=== PATIENT | female | born 1925 ===

== ENCOUNTER 2017-03-08 16:23 | Inpatient (IN) | payer MEDICARE, OTHER ==
[2017-03-08] MEDS ORDERED: Sodium Chloride 0.9% 1,000 ML IV ONE (17:26)
[2017-03-08 17:47] LABS: BASO % 0.4 % (0.0-2.0); EOS # 0.1 K/uL (0.0-0.7); EOS % 1.3 % (0.0-4.0); HEMATOCRIT 23.3 % (34.0-47.0); LYMPH # 1.1 K/uL (1.0-4.3); LYMPH % 21.6 % (20.0-40.0); MEAN CELL VOLUME 89.3 fL (81.0-99.0); MEAN CORPUSCULAR HEMOGLOBIN 29.9 pg (27.0-31.0); MEAN CORPUSCULAR HGB CONC 33.5 g/dL (33.0-37.0); MEAN PLATELET VOLUME 6.9 fL (7.2-11.7); MONO # 0.5 K/uL (0.0-0.8); MONO % 9.7 % (0.0-10.0); NRBC % 0.1 % (0.0-2.0); RED CELL DISTRIBUTION WIDTH 14.5 % (11.5-14.5); WHITE BLOOD COUNT 4.9 K/uL (4.8-10.8)
[2017-03-08 18:14] LABS: CHLORIDE 93 mmol/L (98-107); POTASSIUM 3.9 mmol/L (3.6-5.2); SODIUM 129 mmol/L (132-148)
[2017-03-08 18:16] LABS: GFR AFRICAN-AMERICAN > 60
[2017-03-08 18:17] LABS: ALB/GLOB RATIO 1.3 (1.0-2.1); ALKALINE PHOSPHATASE 74 U/L (38-126); ALT/SGPT 31 U/L (9-52); AST/SGOT 30 U/L (14-36); BILIRUBIN,TOTAL 0.4 mg/dL (0.2-1.3); BLOOD UREA NITROGEN 12 mg/dL (7-17); CARBON DIOXIDE 26 mmol/L (22-30); GLUCOSE,RANDOM 101 mg/dL (65-105); TOTAL PROTEIN 6.9 g/dL (6.3-8.3)
[2017-03-08 18:18] LABS: CALCIUM 8.9 mg/dl (8.6-10.4)
[2017-03-08 18:26] LABS: URINE BILIRUBIN NEGATIVE (NEGATIVE); URINE BLOOD NEGATIVE (NEGATIVE); URINE COLOR Straw (YELLOW); URINE GLUCOSE (UA) NORMAL (Normal); URINE KETONE NEGATIVE (NEGATIVE); URINE LEUKOCYTE ESTERASE NEG Leu/uL (Negative); URINE PROTEIN NEGATIVE (NEGATIVE); URINE UROBILINOGEN NORMAL mg/dL (0.2-1.0); WBC URINE 2 /hpf (0-5)
--- NOTE | 2017-03-08 18:26 | C.PDOC ---
History Of Present Illness 89 y/o female presents to the ED for evaluation. Per caregivers, they discovered patient took 3 days worth of blood pressure pills and plavix 4 days ago. Pt's blood pressure noted to be low, they consulted her doctor at the time , patient without complaints. Blood pressure returned to normal. Yesterday patient felt weak with "black" stool; saw physician with labs done showing hemoglobin 7.5. Denies vomiting, hematemesis, hematochezia, SOB or any other complaints. Time Seen by Provider: 03/08/17 16:42 Chief Complaint (Nursing): Abnormal Labs History Per: Patient History/Exam Limitations: no limitations Onset/Duration Of Symptoms: Hrs Current Symptoms Are (Timing): Still Present Severity: Mild Reports Recently: Treated By A Physician Recent travel outside of the [place]: No Past Medical History Reviewed: Historical Data, Nursing Documentation, Vital Signs Vital Signs: Last Vital Signs Temp 97.3 F L 03/10/17 11:14 Pulse 73 03/10/17 11:14 Resp 20 03/10/17 11:14 BP 154/92 H 03/10/17 11:14 Pulse Ox 95 03/10/17 11:14 - Medical History PMH: Alzheimer's Disease, HTN, Seizures Family History: States: Unknown Family Hx - Social History Hx Alcohol Use: No Hx Substance Use: No Review Of Systems Except As Marked, All Systems Reviewed And Found Negative. Constitutional: Positive for: Weakness. Negative for: Fever Respiratory: Negative for: Shortness of Breath Gastrointestinal: Positive for: Melena. Negative for: Vomiting, Hematochezia, Hematemesis Physical Exam - Physical Exam Appears: Non-toxic, No Acute Distress Skin: Warm, Dry Head: Atraumatic, Normacephalic Chest: Symmetrical Cardiovascular: Rhythm Regular, No Murmur Respiratory: Normal Breath Sounds, No Rales, No Rhonchi, No Wheezing Gastrointestinal/Abdominal: Normal Exam, Soft, No Tenderness Rectal: Normal Exam, Other (brownish stool) Extremity: Normal ROM Neurological/Psych: Oriented x3, Normal Speech, Normal Cognition ED Course And Treatment - Laboratory Results Result Diagrams: 03/10/17 08:44 03/10/17 08:44 ECG: Interpreted By Me, Viewed By Me ECG Rhythm: Sinus Rhythm Rate From EC (BPM) O2 Sat by Pulse Oximetry: 97 (room air) Pulse Ox Interpretation: Normal Progress Note: Plan: Transfusion, EKG, labs, CXR, IV fluids, UA, stool occult Medical Decision Making Medical Decision Making: Pt remained stable in the ED Results discussed with caregiver Hgb 7.9 no active bleeding but quiac (+) stoool Plan admit transfuse w/o Discussed with dr Lyon agrees with plan Disposition - Disposition Disposition: HOSPITALIZED Disposition Time: 18:00 Condition: FAIR - Clinical Impression Clinical Impression: Anemia, H/O peptic ulcer, Guaiac positive stools - Scribe Statement The provider has reviewed the documentation as recorded by the Jarod Winn Provider Attestation: All medical record entries made by the Jarod were at my direction and personally dictated by me. I have reviewed the chart and agree that the record accurately reflects my personal performance of the history, physical exam, medical decision making, and the department course for this patient. I have also personally directed, reviewed, and agree with the discharge instructions and disposition.
--- NOTE | 2017-03-08 19:28 | CP.PCM.HP ---
History of Present Illness - History of Present Illness History of Present Illness: Please note history from daughter at bedside as patient has Alzheimer's dementia and is AO x 2 CC: she fainted on Tuesday HPI: 89 yo female PMHx HTN, PUD, Alzheimer's dementia, seizure hx? presents after she was sent in by Dr. Card PMAshley for low Hgb count. As per daughter, on Tuesday the patient mistakenly ingested her blood pressure medications and Plavix meant for 3 days. After she ingested the BP meds she had an episode of "fainting" where she had an episode of brief LOC with some urinary incontinence. Patient did not have any biting of the tongue, eyes rolled back, shaking and she did not hit her head. She woke up and was feeling better and walking around like normal as per daughter. Her BP when she woke up from her episode was 100/50mmHg and a later BP was 117/65mmHg. On Tuesday, patient and daughter noticed some dark tarry stool and some bright red blood streaks in the toilet bowl after a BM. Patient saw Dr. Card in the office on Tuesday and was instructed to no longer take any plavix and was started on Nitrofurantoin 100mg po bid for a possible UTI. Patient had her blood drawn in the office and results this AM showed a Hgb of 7.4 which is why patient was instructed to go to the ER. Denies fever, chills, diaphoresis, weakness, headache, dizziness, lightheadedness, change in vision and change in hearing, sore throat, dysphagia , chest pain, palpitations, SOB, cough, abdominal pain, nausea, vomiting, hematemesis, diarrhea, constipation, dysuria, urinary frequency, leg pain/ swelling, back pain, bruising, bleeding, rash, travel, recent sickness, sick contacts, change in weight, change in appetite. Patient admits to melanotic stool and hematochezia. As per son at bedside, patient had a colonoscopy 20 years ago which was unremarkable and an EGD 18 years ago which was unremarkable. PMHx: HTN, PUD, Alzheimer's dementia, seizure hx? [every few years patient has an episode- last year she was seen at [facility] and work up was negative] PSHx: cataracts ALL: NKDA Medications: Irbesartan/HCTZ 300/12.5mg daily, Plavix 75mg daily, Nitrofurantoin 100mg po bid, Omeprazol 20mg po daily Social Hx: quit smoking tobacco 30 years ago and used to smoke 2-3 cigaretes a day since she was a teenager; denies EtOH and drug use; lives with family and used to work as a teacher. Patient usually ambuates without a walker/cane. Family Hx: father had some cardiac issues PMD: Kyaw ROS: Denies fever, chills, diaphoresis, weakness, headache, dizziness, lightheadedness, change in vision and change in hearing, sore throat, dysphagia , chest pain, palpitations, SOB, cough, abdominal pain, nausea, vomiting, hematemesis, diarrhea, constipation, dysuria, urinary frequency, leg pain/ swelling, back pain, bruising, bleeding, rash, travel, recent sickness, sick contacts, change in weight, change in appetite. Admits to melanotic stool and hematochezia. Present on Admission - Present on Admission Any Indicators Present on Admission: No Review of Systems - Constitutional Constitutional: As Per HPI. absent: Chills, Fever - EENT Eyes: As Per HPI. absent: Change in Vision Ears: As Per HPI. absent: Tinnitus Nose/Mouth/Throat: As Per HPI. absent: Dysphagia, Sore Throat - Cardiovascular Cardiovascular: As Per HPI. absent: Chest Pain, Dyspnea, Dyspnea on Exertion, Edema, Palpitations - Respiratory Respiratory: As Per HPI. absent: Cough, Dyspnea, Dyspnea on Exertion, Chest Congestion - Gastrointestinal Gastrointestinal: As Per HPI, Hematochezia, Melena. absent: Abdominal Pain, Constipation, Diarrhea, Nausea, Vomiting - Genitourinary Genitourinary: As Per HPI. absent: Dysuria, Hematuria, Pyuria, Nocturia - Musculoskeletal Musculoskeletal: As Per HPI. absent: Numbness, Tingling - Integumentary Integumentary: As Per HPI, Rash (below b/l breasts when patient does not wear a bra) - Neurological Neurological: As Per HPI. absent: Dizziness, Headaches, Tingling, Weakness Additional comments: AO x 2 - hx of Alzheimer's - Psychiatric Psychiatric: As Per HPI. absent: Anxiety, Depression - Endocrine Endocrine: As Per HPI. absent: Polydipsia, Polyphagia, Polyuria - Hematologic/Lymphatic Hematologic: As Per HPI. absent: Easy Bleeding, Easy Bruising, Lymphadenopathy Past Patient History - Past Medical History & Family History Past Medical History?: Yes - Past Social History Smoking Status: Former Smoker Chewing Tobacco Use: No Cigar Use: No Alcohol: None Drugs: Denies Home Situation {Lives}: With Family Domestic Violence: Negative - CARDIAC Hx Hypertension: Yes - NEUROLOGICAL Hx Alzheimer's Disease: Yes Hx Seizures: Yes - PSYCHIATRIC Hx Substance Use: No - SURGICAL HISTORY Hx Dilation and Curettage: Yes Meds Allergies/Adverse Reactions: Allergies Allergy/AdvReac Type Severity Reaction Status Date / Time No Known Allergies Allergy Verified 03/08/17 16:33 Physical Exam - Constitutional Appears: Well, Non-toxic, No Acute Distress - Head Exam Head Exam: ATRAUMATIC, NORMAL INSPECTION, NORMOCEPHALIC - Eye Exam Eye Exam: EOMI, Normal appearance, PERRL. absent: Conjunctival injection, Scleral icterus Pupil Exam: NORMAL ACCOMODATION, PERRL - ENT Exam ENT Exam: Mucous Membranes Moist - Neck Exam Neck exam: Positive for: Full Rom, Normal Inspection. Negative for: Lymphadenopathy, Tenderness - Respiratory Exam Respiratory Exam: Clear to Auscultation Bilateral, NORMAL BREATHING PATTERN. absent: Accessory Muscle Use, Rales, Rhonchi, Wheezes, Respiratory Distress - Cardiovascular Exam Cardiovascular Exam: REGULAR RHYTHM, RRR, +S1, +S2 - GI/Abdominal Exam GI & Abdominal Exam: Normal Bowel Sounds, Soft. absent: Firm, Guarding, Rigid, Tenderness - Rectal Exam Rectal Exam: Deferred - Extremities Exam Extremities exam: Positive for: normal capillary refill, normal inspection, pedal pulses present. Negative for: pedal edema - Back Exam Back exam: NORMAL INSPECTION. absent: rash noted, tenderness - Neurological Exam Neurological exam: Alert, CN II-XII Intact, Reflexes Normal Additional comments: AO x [address] - Psychiatric Exam Psychiatric exam: Normal Affect, Normal Mood - Skin Skin Exam: Dry, Intact, Pallor, Pallor, Warm Results - Vital Signs Recent Vital Signs: Last Vital Signs Temp 98.3 F 03/08/17 16:27 Pulse 82 03/08/17 16:27 Resp 20 03/08/17 16:27 BP 153/72 H 03/08/17 16:27 Pulse Ox 97 03/08/17 18:29 - Labs Result Diagrams: 03/08/17 17:42 03/08/17 17:42 Assessment & Plan - Assessment and Plan (Free Text) Assessment: 89 yo female PMHx HTN, PUD, Alzheimer's dementia, seizure hx? presents after she was sent in by Dr. Kyaw HERRERA for low Hgb count Plan: Acute anemia -Hgb on admission 7.8 -Likey secondary to upper GI bleed -FOBT + -VTE ppx c/i -Home plavix on hold -Transfuse 1U PRBC - will f/u CBC -VSS -f/u AM labs -GI consult Dr. Howard Hx of HTN -Cozaar 100mg po daily -HCTZ 12.5mg po daily -f/u HgbA1c and lipid panel -Monitor Hx of PUD -Protonix 40mg po daily Hx of Alzheimer's dementia -Monitor PPX -NPO past midnight for possible GI procedure -Protonix 40mg po daily -VTE ppx c/i -NS @ 80cc/hr - will start after transfusion is completed Plan discussed with Dr. Efren Malin PGY1
[2017-03-09] MEDS: Sodium Chloride 0.9% 1,000 ML IV SCH ×2 (00:42→13:21)
--- NOTE | 2017-03-09 07:16 | CP.PCM.PN ---
<KyleJessi manriquezteresa - Last Filed: 03/09/17 17:15> Subjective - Date & Time of Evaluation Date of Evaluation: 03/09/17 Time of Evaluation: 07:10 - Subjective Subjective: PGY 1 Medicine Note- Dr. Diehl's service Pt seen and examined in no acute distress with daughter and later son present bedside. Per daughter, patient has a history of dementia and is not always alert. Today patient was awake, alert and oriented x3 with no acute complaints s /p transfusion yesterday. Per daughter and then later son, mother ingested 3 days worth of plavix and aspirin and had an episode of tarry stools prompting a doctor's visit. It was at that time that routine bloodwork was collected whereupon the hgb was noted to be decreased from baseline. At this point, patient is amble to ambulate with assistance. Patient denies fevers, chills, weakness, nausea, vomiting, diarrhea, chest pain, dyspnea or paresthesias at this time. Objective - Vital Signs/Intake and Output Vital Signs (last 24 hours): Temp Pulse Resp BP Pulse Ox 98 F 85 19 170/85 H 96 03/08/17 23:19 03/08/17 23:19 03/09/17 03:20 03/08/17 23:19 03/08/17 23:19 Intake and Output: 03/09/17 03/09/17 06:59 18:59 Intake Total 560 Balance 560 - Medications Medications: Current Medications Hydrochlorothiazide (Microzide) 12.5 mg PO DAILY [facility] Sodium Chloride (Sodium Chloride 0.9%) 1,000 mls @ 80 mls/hr IV .[id number] [facility] Last Admin: 03/09/17 00:42 Dose: 80 mls/hr Losartan Potassium (Cozaar) 100 mg PO DAILY [facility] Pantoprazole Sodium (Protonix Ec Tab) 40 mg PO DAILY [facility] - Labs Labs: PT 11.1 SECONDS (9.7-12.2) 03/08/17 17:42 INR 1.0 03/08/17 17:42 APTT 31 SECONDS (21-34) 03/08/17 17:42 - Constitutional Appears: Non-toxic, No Acute Distress - Head Exam Head Exam: ATRAUMATIC, NORMAL INSPECTION, NORMOCEPHALIC - Eye Exam Eye Exam: EOMI, Normal appearance, PERRL Additional comments: conjunctival pallor not appreciated. - ENT Exam ENT Exam: Mucous Membranes Moist - Neck Exam Neck Exam: Full ROM - Respiratory Exam Respiratory Exam: Clear to Ausculation Bilateral, NORMAL BREATHING PATTERN. absent: Wheezes - Cardiovascular Exam Cardiovascular Exam: REGULAR RHYTHM, +S1, +S2 - GI/Abdominal Exam GI & Abdominal Exam: Soft, Normal Bowel Sounds - Extremities Exam Extremities Exam: Full ROM, Normal Capillary Refill. absent: Tenderness Additional comments: LE superficial thrombophlebitis b/l nontender - Back Exam Back Exam: Full ROM - Neurological Exam Neurological Exam: Alert, Awake, CN II-XII Intact, Oriented x3 - Psychiatric Exam Psychiatric exam: Normal Affect, Normal Mood - Skin Skin Exam: Dry, Intact, Normal Color, Warm Assessment and Plan - Assessment and Plan (Free Text) Assessment: Acute anemia -Hgb on admission 7.8. Transfused 1 unit PRBC. F/U CBC: 9.2. F/U CBC 16:00 -Likely secondary to GI bleed following overdose on plavix and aspirin ( patient took 3 days worth in one day) -FOBT + -Home plavix and ASA on hold -F/U platelet mixing study and platelet function test -Platelets today 342. Cont to monitor -vital signs stable -f/u AM labs -GI consult Dr. Howard- F/U -EGD in AM. Considerations for colonoscopy pending EGD results. ( NPO past midnight) Hx of HTN -Cozaar 100mg po daily-HELD -HCTZ 12.5mg po daily-HELD -Hgb A1c- 5.7 -Lipid Panel WNL -Monitor Hypokalemia -Repleted -Cont to monitor Hx of PUD -Protonix 40mg IV Hx of Alzheimer's dementia -Cont to monitor PPX -NPO past midnight for possible GI procedure -Protonix 40mg IV daily -VTE ppx c/i -SCDs in place <Shana Diehl V - Last Filed: 03/09/17 18:47> Objective - Vital Signs/Intake and Output Vital Signs (last 24 hours): Temp Pulse Resp BP Pulse Ox 98.4 F 74 20 158/75 H 96 03/09/17 15:50 03/09/17 15:50 03/09/17 15:50 03/09/17 15:50 03/09/17 15:50 Intake and Output: 03/09/17 03/09/17 06:59 18:59 Intake Total 560 80 Balance 560 80 - Medications Medications: Current Medications Hydrochlorothiazide (Microzide) 12.5 mg PO DAILY [facility] Last Admin: 03/09/17 10:41 Dose: 12.5 mg Sodium Chloride (Sodium Chloride 0.9%) 1,000 mls @ 80 mls/hr IV .[id number] [facility] Last Admin: 03/09/17 13:21 Dose: Not Given Losartan Potassium (Cozaar) 100 mg PO DAILY [facility] Last Admin: 03/09/17 10:40 Dose: 100 mg Pantoprazole Sodium (Protonix Inj) 40 mg IVP DAILY [facility] Last Admin: 03/09/17 13:48 Dose: Not Given - Labs Labs: 03/09/17 17:52 03/09/17 07:41 PT 11.1 SECONDS (9.7-12.2) 03/08/17 17:42 INR 1.0 03/08/17 17:42 APTT 31 SECONDS (21-34) 03/08/17 17:42 Attending/Attestation - Attestation I have personally seen and examined this patient.: Yes I have fully participated in the care of the patient.: Yes I have reviewed all pertinent clinical information, including history, physical exam and plan: Yes Notes (Text): Patient seen, examined, and case discussed with day-time resident this morning. Patient transferred from general medical floor to telemetry given she is being workup for GI bleed. Discussed with GI, Dr Howard, scheduled for EGD tomorrow in AM. Will monitor H/ H to monitor anemia. Heme-onc consult given patient took excessive number of plavix and aspirin. Ordered for mixing study. Discussed with patient's son and patient at bedside, patient has history of peptic ulcer disease, [place] 1970[place], was a former smoker, does not drink coffee, and reports occasional alcohol. Patient has mild short-term memory loss but is quite communicative. Assessment/Plan 1) Acute anemia secondary to suspected GI bleed * GI (Dr Howard) on board-->help appreciated * Heme-onc (Dr. Golden Marroquin) on board-->help appreciated * Hgb on admission 7.8. s/p transfused 2 unit PRBC. Hgb: 9.2 * Transferred to telemetry for GI bleed * Occult blood positive * Ordered for platelet mixing and function test given recent plavix use * NPO * IV Protonix * Aspirin and Plavix held * EGD in the AM (03/10) 2) Hypertension * Held anti-hypertensives given patient is being monitor for GI bleed * Hydralazine 10mg IV Q6H PRN SBP>160 3) Hypokalemia * replete * monitor and replace if necessary 4) Peptic ulcer disease * Protonix 40mg IV Q 12hours * known history * patient reports refrains from smoking, coffee use, and occasional alcohol use 5) Hx of Alzheimer's dementia * mild * monitor 6) PPX * NPO past midnight for possible EGD in AM * Protonix 40mg IV Q12H for GI ppx * Contraindications to VTE secondary to GI bleed/combo of plavix and aspirin * SCDs b/l
[2017-03-09 07:57] LABS: BASO % 0.6 % (0.0-2.0); EOS # 0.1 K/uL (0.0-0.7); HEMATOCRIT 26.5 % (34.0-47.0); LYMPH # 1.1 K/uL (1.0-4.3); LYMPH % 29.8 % (20.0-40.0); MEAN CORPUSCULAR HEMOGLOBIN 30.9 pg (27.0-31.0); MEAN CORPUSCULAR HGB CONC 34.7 g/dL (33.0-37.0); MONO # 0.4 K/uL (0.0-0.8); MONO % 10.1 % (0.0-10.0); NRBC % 0.2 % (0.0-2.0); RED CELL DISTRIBUTION WIDTH 13.8 % (11.5-14.5); WHITE BLOOD COUNT 3.7 K/uL (4.8-10.8)
--- NOTE | 2017-03-09 09:21 | RAD ---
PROCEDURE: CHEST RADIOGRAPH, 1 VIEW HISTORY: GI Bleeding COMPARISON: None available. FINDINGS: LUNGS: The lungs are well inflated and clear. PLEURA: No pneumothorax or pleural fluid seen. CARDIOVASCULAR: Normal. OSSEOUS STRUCTURES: No significant abnormalities. VISUALIZED UPPER ABDOMEN: Normal. OTHER FINDINGS: None. IMPRESSION: No active pulmonary disease.
[2017-03-09 09:40] LABS: CHLORIDE 100 mmol/L (98-107)
[2017-03-09 09:41] LABS: POTASSIUM 3.5 mmol/L (3.6-5.2); SODIUM 133 mmol/L (132-148)
[2017-03-09 09:43] LABS: CHOLESTEROL 110 mg/dL (0-199); GFR AFRICAN-AMERICAN > 60
[2017-03-09 09:44] LABS: ALB/GLOB RATIO 1.2 (1.0-2.1); ALKALINE PHOSPHATASE 65 U/L (38-126); ALT/SGPT 23 U/L (9-52); AST/SGOT 23 U/L (14-36); BILIRUBIN,TOTAL 0.7 mg/dL (0.2-1.3); BLOOD UREA NITROGEN 8 mg/dL (7-17); CARBON DIOXIDE 27 mmol/L (22-30); GLUCOSE,RANDOM 84 mg/dL (65-105); PHOSPHOROUS 3.5 mg/dL (2.5-4.5); TOTAL PROTEIN 6.2 g/dL (6.3-8.3)
[2017-03-09 09:45] LABS: CALCIUM 8.7 mg/dl (8.6-10.4)
[2017-03-09] MEDS ORDERED: Pantoprazole 40 mg EC Tab PO SCH (10:00)
--- NOTE | 2017-03-09 10:39 | CP.PCM.CON ---
History of Present Illness - History of Present Illness History of Present Illness: HPI: 89 yo female PMHx HTN, PUD, Alzheimer's dementia, seizure hx? presents after she was sent in by Dr. Card PMAshley for low Hgb count. As per daughter, on Tuesday the patient mistakenly ingested her blood pressure medications and Plavix meant for 3 days. After she ingested the BP meds she had an episode of "fainting" where she had an episode of brief LOC with some urinary incontinence. Patient did not have any biting of the tongue, eyes rolled back, shaking and she did not hit her head. She woke up and was feeling better and walking around like normal as per daughter. Her BP when she woke up from her episode was 100/50mmHg and a later BP was 117/65mmHg. On Tuesday, patient and daughter noticed some dark tarry stool and some bright red blood streaks in the toilet bowl after a BM. Patient saw Dr. Card in the office on Tuesday and was instructed to no longer take any plavix and was started on Nitrofurantoin 100mg po bid for a possible UTI. Patient had her blood drawn in the office and results this AM showed a Hgb of 7.4 which is why patient was instructed to go to the ER. Denies fever, chills, diaphoresis, weakness, headache, dizziness, lightheadedness, change in vision and change in hearing, sore throat, dysphagia , chest pain, palpitations, SOB, cough, abdominal pain, nausea, vomiting, hematemesis, diarrhea, constipation, leg pain/swelling, back pain, change in weight, change in appetite. Patient admits to melanotic stool and hematochezia. As per son at bedside, patient had a colonoscopy 20 years ago which was unremarkable and an EGD 18 years ago at which time she had an ulcer according to her son. Review of Systems - Review of Systems Systems not reviewed;Unavailable: Altered Mental Status All systems: reviewed and no additional remarkable complaints except Past Patient History - Past Medical History & Family History Past Medical History?: Yes - Past Social History Smoking Status: Former Smoker Chewing Tobacco Use: No Alcohol: None Drugs: Denies - CARDIAC Hx Cardiac Disorders: Yes Hx Angina: No Hx Atrial Fibrillation: No Hx Cardia Arrhythmia: No Hx Circulatory Problems: No Hx Congestive Heart Failure: No Hx Heart Attack: No Hx Heart Murmur: No Hx Heart Transplant: No Hx Hypercholesterolemia: No Hx Hypertension: Yes Hx Hypotension: No Hx Internal Defibrillator: No Hx Mitral Valve Prolapse: No Hx Pacemaker: No Hx Peripheral Edema: No Hx Peripheral Vascular Disease: No - PULMONARY Hx Respiratory Disorders: No - NEUROLOGICAL Hx Neurological Disorder: Yes Hx Alzheimer's Disease: Yes HX Cerebrovascular Accident: No Hx Dementia: No Hx Dizziness: No Hx Meningitis: No Hx Migraine: No Hx Multiple Sclerosis: No Hx Paralysis: No Hx Parkinson's Disease: No Hx Seizures: Yes Hx Syncope: No Hx Transient Ischemic Attacks (TIA): No Hx Vertigo: No - HEENT Hx HEENT Problems: Yes Hx Blind: No Hx Cataracts: Yes Hx Deafness: No Hx Difficulty Chewing: No Hx Epistaxis: No Hx Glaucoma: No Hx Macular Degeneration: No Hx Sinusitis: No - RENAL Hx Chronic Kidney Disease: No - ENDOCRINE/METABOLIC Hx Endocrine Disorders: No - HEMATOLOGICAL/ONCOLOGICAL Hx Blood Disorders: No Hx Cirrhosis: No Hx Hepatitis A: No Hx Hepatitis B: No Hx Hepatitis C: No - INTEGUMENTARY Hx Dermatological Problems: No - MUSCULOSKELETAL/RHEUMATOLOGICAL Hx Falls: No - GASTROINTESTINAL Hx Gastrointestinal Disorders: Yes Hx Bowel Surgery: No Hx Clostridium Difficile: No Hx Colitis: No Hx Colostomy: No Hx Constipation: No Hx Crohn's Disease: No Hx Diarrhea: No Hx Diverticulitis: No Hx Esophageal Varices: No Hx Fatty Liver Disease: No Hx Gall Bladder Disease: No Hx Gastritis: No Hx Gastroesophageal Reflux: No Hx Hemorrhoids: No Hx Ileostomy: No Hx Irritable Bowel: No Hx Liver Failure: No Hx Nausea: No Hx Pancreatitis: No HX Swallowing Problems: No Hx Ulcer: Yes (peptic) Hx Vomiting: No - GENITOURINARY/GYNECOLOGICAL Hx Genitourinary Disorders: No - PSYCHIATRIC Hx Substance Use: No - SURGICAL HISTORY Hx Surgeries: Yes Hx Abdominal Aortic Aneurysm Repair: No Hx Amputation: No Hx Angiogram: No Hx Angioplasty: No Hx Appendectomy: No Hx Arteriovenous Shunt: No Hx Arthroscopy: No Hx Bile Duct Stent: No Hx Breast Biopsy: No Hx Cataract Extraction: Yes Hx Cardiac Catheterization: No Hx Carotid Endarterectomy: No Hx Section: No Hx Cholecystectomy: No Hx Coronary Artery Bypass Graft: No Hx Coronary Stent: No Hx Dilation and Curettage: Yes Hx Eye Surgery: No Hx Femoral-Popliteal Bypass Graft: No Hx Gastric Bypass Surgery: No Hx Herniorrhaphy: No Hx Hysterectomy: No Hx Joint Replacement: No Hx Kidney Transplant: No Hx Liver Transplant: No Hx Mastectomy: No Hx Musculoskeletal Surgery: No Hx Open Heart Surgery: No Hx Open Reduction Internal Fixation: No Hx Orthopedic Surgery: No Hx Parathyroidectomy: No Hx Penile Implant: No Hx Pulmonary Surgery: No Hx Splenectomy: No Hx Thyroidectomy: No Hx Tonsillectomy: No Hx Tubal Ligation: No Hx Valve Replacement: No Hx Vascular Surgery: No Hx Vascular Access Device: No - ANESTHESIA Hx Anesthesia: No Hx Anesthesia Reactions: No Hx Malignant Hyperthermia: No Has any member of the family had a problem w/ anesthesia?: No Meds Allergies/Adverse Reactions: Allergies Allergy/AdvReac Type Severity Reaction Status Date / Time No Known Allergies Allergy Verified 03/08/17 16:33 - Medications Medications: Current Medications Hydrochlorothiazide (Microzide) 12.5 mg PO DAILY [facility] Sodium Chloride (Sodium Chloride 0.9%) 1,000 mls @ 80 mls/hr IV .[id number] [facility] Last Admin: 03/09/17 00:42 Dose: 80 mls/hr Losartan Potassium (Cozaar) 100 mg PO DAILY [facility] Pantoprazole Sodium (Protonix Ec Tab) 40 mg PO DAILY [facility] Physical Exam - Constitutional Appears: No Acute Distress - Head Exam Head Exam: ATRAUMATIC, NORMOCEPHALIC - Eye Exam Eye Exam: EOMI, PERRL - Respiratory Exam Respiratory Exam: NORMAL BREATHING PATTERN - Cardiovascular Exam Cardiovascular Exam: REGULAR RHYTHM - GI/Abdominal Exam GI & Abdominal Exam: Hyperactive Bowel Sounds, Soft. absent: Tenderness - Rectal Exam Rectal Exam: Deferred - Extremities Exam Extremities exam: Positive for: normal inspection - Neurological Exam Neurological exam: Alert Additional comments: orietned to person only - Skin Skin Exam: Dry, Warm Results - Vital Signs Recent Vital Signs: Last Vital Signs Temp 97.7 F 03/09/17 08:00 Pulse 77 03/09/17 08:00 Resp 20 03/09/17 08:00 BP 167/83 H 03/09/17 08:00 Pulse Ox 96 03/09/17 08:00 - Labs Result Diagrams: 03/09/17 07:41 03/09/17 07:41 Labs: Laboratory Results - last 24 hr 06/14/17 06/14/17 06/14/17 07:41 07:41 07:41 WBC 3.7 L RBC 2.98 L Hgb 9.2 L Hct 26.5 L MCV 89.0 MCH 30.9 MCHC 34.7 RDW 13.8 Plt Count 342 MPV 7.0 L Neut % (Auto) 56.5 Lymph % (Auto) 29.8 [place] % (Auto) 10.1 H Eos % (Auto) 3.0 Baso % (Auto) 0.6 Neut # 2.1 Lymph # 1.1 [place] # 0.4 Eos # 0.1 Baso # 0.0 Sodium 133 Potassium 3.5 L Chloride 100 Carbon Dioxide 27 Anion Gap 10 BUN 8 Creatinine 0.6 L Est GFR ( Amer) > 60 Est GFR (Non-Af Amer) > 60 Random Glucose 84 Hemoglobin A1c 5.7 Calcium 8.7 Phosphorus 3.5 Magnesium 2.0 Total Bilirubin 0.7 AST 23 ALT 23 Alkaline Phosphatase 65 Total Protein 6.2 L Albumin 3.4 L Globulin 2.9 Albumin/Globulin Ratio 1.2 Triglycerides 38 Cholesterol 110 LDL Cholesterol Direct 39 HDL Cholesterol 55 Assessment & Plan (1) Gastrointestinal hemorrhage with melena Assessment and Plan: Gi bleeding likely due to overdose of Plavix resulting in peptic ulcer or hemorrhagic gastritis. Patient with know vascular disease on antiplatelet meds. Has h/o ulcer in the past. NPO IV Protonix Hold Plavix, ASA Monitor for active bleeding EGD in am when clinically stable (consult not called in until this am at which time endoscopy schedule could not be facilitated today if non-emergent) If negative may need colonoscopy prior to discharge or as an outpatient. (when Plavix, Asa held for 4 or more days to allow polypectomy) Status: Acute Priority: High (2) Anemia Assessment and Plan: as above Status: Acute Priority: High (3) H/O peptic ulcer Status: Chronic
[2017-03-09] MEDS ORDERED: Pneumococcal 23-Valent Vaccine IM ONE (12:42)
[2017-03-09 17:56] LABS: BASO % 0.6 % (0.0-2.0); EOS # 0.1 K/uL (0.0-0.7); EOS % 1.5 % (0.0-4.0); HEMATOCRIT 29.5 % (34.0-47.0); LYMPH # 0.8 K/uL (1.0-4.3); MEAN CELL VOLUME 89.2 fL (81.0-99.0); MEAN CORPUSCULAR HEMOGLOBIN 29.9 pg (27.0-31.0); MEAN CORPUSCULAR HGB CONC 33.5 g/dL (33.0-37.0); MEAN PLATELET VOLUME 6.9 fL (7.2-11.7); MONO # 0.3 K/uL (0.0-0.8); MONO % 7.8 % (0.0-10.0); NRBC % 0.1 % (0.0-2.0); RED CELL DISTRIBUTION WIDTH 14.1 % (11.5-14.5); WHITE BLOOD COUNT 4.2 K/uL (4.8-10.8)
[2017-03-10] MEDS: Sodium Chloride 0.9% 1,000 ML IV SCH (01:45)
--- NOTE | 2017-03-10 07:06 | CP.PCM.PN ---
Subjective - Date & Time of Evaluation Date of Evaluation: 03/10/17 Objective - Vital Signs/Intake and Output Vital Signs (last 24 hours): Temp Pulse Resp BP Pulse Ox 98.2 F 80 20 151/84 H 95 03/09/17 23:50 03/10/17 01:00 03/09/17 23:50 03/09/17 23:50 03/09/17 23:50 Intake and Output: 03/10/17 03/10/17 06:59 18:59 Intake Total 1780 Balance 1780 - Medications Medications: Current Medications Hydralazine HCl (Apresoline) 10 mg IVP Q6H PRN PRN Reason: Systolic Blood Pressure > 160 Sodium Chloride (Sodium Chloride 0.9%) 1,000 mls @ 80 mls/hr IV .[id number] [facility] Last Admin: 03/10/17 01:45 Dose: Not Given Pantoprazole Sodium (Protonix Inj) 40 mg IVP Q12 [facility] Last Admin: 03/09/17 21:43 Dose: 40 mg - Labs Labs: 03/09/17 17:52 03/09/17 07:41 PT 11.1 SECONDS (9.7-12.2) 03/08/17 17:42 INR 1.0 03/08/17 17:42 APTT 31 SECONDS (21-34) 03/08/17 17:42 Assessment and Plan - Assessment and Plan (Free Text) Assessment: Acute anemia -Hgb on admission 7.8. Transfused 1 unit PRBC. F/U CBC: 9.2. F/U Hgb 9.9. Stable this morning. Cont to monitor -Likely secondary to GI bleed following overdose on plavix and aspirin ( patient took 3 days worth in one day) -FOBT + -Home plavix and ASA on hold -Platelet function test- Results 376 which is within a normal range indicative that platelets are functioning adequately to prevent platelet from adverse bleeding risks. -F/U platelet mixing study and -Cont to monitor platelets -vital signs stable -f/u AM labs -GI consult Dr. Howard- F/U -EGD 03/10: Hx of HTN -Cozaar 100mg po daily-HELD -HCTZ 12.5mg po daily-HELD -Hgb A1c- 5.7 -Lipid Panel WNL -Monitor Hypokalemia -Repleted -Cont to monitor Hx of PUD -Protonix 40mg IV Hx of Alzheimer's dementia -Cont to monitor PPX -NPO past midnight for possible GI procedure -Protonix 40mg IV daily -VTE ppx c/i -SCDs in place
[2017-03-10 08:55] LABS: PLT(ADP) 27 K/uL
[2017-03-10 08:56] LABS: FUNCTIONING PLTS 376 K/uL; PLT BASE COUNT 403 K/uL
[2017-03-10 09:03] LABS: BASO % 0.6 % (0.0-2.0); EOS # 0.1 K/uL (0.0-0.7); EOS % 2.4 % (0.0-4.0); HEMATOCRIT 29.1 % (34.0-47.0); LYMPH # 0.9 K/uL (1.0-4.3); LYMPH % 18.5 % (20.0-40.0); MEAN CELL VOLUME 89.4 fL (81.0-99.0); MEAN CORPUSCULAR HEMOGLOBIN 30.7 pg (27.0-31.0); MEAN CORPUSCULAR HGB CONC 34.3 g/dL (33.0-37.0); MEAN PLATELET VOLUME 6.9 fL (7.2-11.7); MONO # 0.4 K/uL (0.0-0.8); RED CELL DISTRIBUTION WIDTH 14.3 % (11.5-14.5)
[2017-03-10 09:25] LABS: CHLORIDE 95 mmol/L (98-107); SODIUM 131 mmol/L (132-148)
[2017-03-10 09:26] LABS: POTASSIUM 3.5 mmol/L (3.6-5.2)
[2017-03-10 09:28] LABS: ALB/GLOB RATIO 1.2 (1.0-2.1); ALKALINE PHOSPHATASE 91 U/L (38-126); AST/SGOT 22 U/L (14-36); BILIRUBIN,TOTAL 0.6 mg/dL (0.2-1.3); BLOOD UREA NITROGEN 7 mg/dL (7-17); CARBON DIOXIDE 27 mmol/L (22-30); GFR AFRICAN-AMERICAN > 60; GLUCOSE,RANDOM 84 mg/dL (65-105); PHOSPHOROUS 3.4 mg/dL (2.5-4.5)
[2017-03-10 09:29] LABS: ALT/SGPT 31 U/L (9-52); CALCIUM 8.6 mg/dl (8.6-10.4); MAGNESIUM 1.8 mg/dL (1.6-2.3)
[2017-03-10] MEDS ORDERED: Etomidate 20 mg/10ml Inj IV ONE (10:10)
[2017-03-10] MEDS ORDERED: Propofol 10 mg/ml Inj (20 ML) ONE (10:10)
--- NOTE | 2017-03-10 10:22 | CP.PCM.PN ---
Subjective - Date & Time of Evaluation Date of Evaluation: 03/10/17 Time of Evaluation: 10:20 - Subjective Subjective: EGD brief note: Acute pre-pyloric gastric ulcer without bleeding or SRH. Moderate crater. Margins biopsied but likely due to medications. Acute gastritis Rec/ Hold ASA, Plavix for approx one week High dose PPI bid for one week then QD as antiplatelet meds started Advise colonoscopy to be done as outpatient when meds can be held for 5-7 days to allow for polypectomy/biopsy without fear of bleeding. This was discussed with her daughter at bedside. Advance diet and stable for discharge if medically stable. Objective - Vital Signs/Intake and Output Vital Signs (last 24 hours): Temp Pulse Resp BP Pulse Ox 98.2 F 75 15 171/74 H 100 03/10/17 10:08 03/10/17 10:08 03/10/17 10:08 03/10/17 10:08 03/10/17 10:08 Intake and Output: 03/10/17 03/10/17 06:59 18:59 Intake Total 1780 0 Balance 1780 0 - Medications Medications: Current Medications Hydralazine HCl (Apresoline) 10 mg IVP Q6H PRN PRN Reason: Systolic Blood Pressure > 160 Sodium Chloride (Sodium Chloride 0.9%) 1,000 mls @ 80 mls/hr IV .[id number] [facility] Last Admin: 03/10/17 01:45 Dose: Not Given Pantoprazole Sodium (Protonix Inj) 40 mg IVP Q12 [facility] Last Admin: 03/10/17 09:24 Dose: 40 mg - Labs Labs: 03/10/17 08:44 03/10/17 08:44 PT 11.1 SECONDS (9.7-12.2) 03/08/17 17:42 INR 1.0 03/08/17 17:42 APTT 31 SECONDS (21-34) 03/08/17 17:42 Assessment and Plan (1) Gastrointestinal hemorrhage with melena Status: Acute (2) Anemia Status: Acute (3) H/O peptic ulcer Status: Chronic
[2017-03-10] MEDS ORDERED: Pantoprazole 40 mg EC Tab PO SCH (10:30)
[2017-03-10 11:43] VITALS: BP 154/92; PULSE 73; RESP 20; TEMP 97.3
[2017-03-10 12:29] VITALS: O2SAT 97
[2017-03-10] MEDS ORDERED: Pneumococcal 23-Valent Vaccine IM ONE (13:54)
--- NOTE | 2017-03-10 14:11 | CP.PCM.DIS ---
Provider - Provider Date of Admission: 03/08/17 18:31 Attending physician: Shana Diehl DO Consults: Dr. Howard ( GI) Dr. Marroquin ( [facility]) Time Spent in preparation of Discharge (in minutes): 39 Diagnosis - Discharge Diagnosis (1) Anemia Status: Chronic Priority: High (2) HTN (hypertension) Status: Chronic (3) Hypokalemia Status: Acute (4) H/O peptic ulcer Status: Chronic (5) Alzheimer disease Status: Chronic Hospital Course - Lab Results Lab Results: Most Recent Lab Values WBC 5.0 K/uL (4.8-10.8) 03/10/17 08:44 RBC 3.26 Mil/uL (3.80-5.20) L 03/10/17 08:44 Hgb 10.0 g/dL (11.0-16.0) L 03/10/17 08:44 Hct 29.1 % (34.0-47.0) L 03/10/17 08:44 MCV 89.4 fL (81.0-99.0) 03/10/17 08:44 MCH 30.7 pg (27.0-31.0) 03/10/17 08:44 MCHC 34.3 g/dL (33.0-37.0) 03/10/17 08:44 RDW 14.3 % (11.5-14.5) 03/10/17 08:44 Plt Count 435 K/uL (130-400) H 03/10/17 08:44 MPV 6.9 fL (7.2-11.7) L 03/10/17 08:44 Neut % (Auto) 71.5 % (50.0-75.0) 03/10/17 08:44 Lymph % (Auto) 18.5 % (20.0-40.0) L 03/10/17 08:44 [place] % (Auto) 7.0 % (0.0-10.0) 03/10/17 08:44 Eos % (Auto) 2.4 % (0.0-4.0) 03/10/17 08:44 Baso % (Auto) 0.6 % (0.0-2.0) 03/10/17 08:44 Neut # 3.6 K/uL (1.8-7.0) 03/10/17 08:44 Lymph # 0.9 K/uL (1.0-4.3) L 03/10/17 08:44 [place] # 0.4 K/uL (0.0-0.8) 03/10/17 08:44 Eos # 0.1 K/uL (0.0-0.7) 03/10/17 08:44 Baso # 0.0 K/uL (0.0-0.2) 03/10/17 08:44 PT 11.1 SECONDS (9.7-12.2) 03/08/17 17:42 INR 1.0 03/08/17 17:42 APTT 31 SECONDS (21-34) 03/08/17 17:42 Plt Function Assay 376 K/uL 03/10/17 08:44 Sodium 131 mmol/L (132-148) L 03/10/17 08:44 Potassium 3.5 mmol/L (3.6-5.2) L 03/10/17 08:44 Chloride 95 mmol/L (98-107) L 03/10/17 08:44 Carbon Dioxide 27 mmol/L (22-30) 03/10/17 08:44 Anion Gap 13 (10-20) 03/10/17 08:44 BUN 7 mg/dL (7-17) 03/10/17 08:44 Creatinine 0.6 MG/DL (0.7-1.2) L 03/10/17 08:44 Est GFR ( Amer) > 60 03/10/17 08:44 Est GFR (Non-Af Amer) > 60 03/10/17 08:44 Random Glucose 84 mg/dL (65-105) 03/10/17 08:44 Hemoglobin A1c 5.7 % (4.2-6.5) 03/09/17 07:41 Calcium 8.6 mg/dl (8.6-10.4) 03/10/17 08:44 Phosphorus 3.4 mg/dL (2.5-4.5) 03/10/17 08:44 Magnesium 1.8 mg/dL (1.6-2.3) 03/10/17 08:44 Total Bilirubin 0.6 mg/dL (0.2-1.3) 03/10/17 08:44 AST 22 U/L (14-36) 03/10/17 08:44 ALT 31 U/L (9-52) 03/10/17 08:44 Alkaline Phosphatase 91 U/L (38-126) 03/10/17 08:44 Total Protein 7.0 g/dL (6.3-8.3) 03/10/17 08:44 Albumin 3.8 g/dL (3.5-5.0) 03/10/17 08:44 Globulin 3.2 gm/dL (2.2-3.9) 03/10/17 08:44 Albumin/Globulin Ratio 1.2 (1.0-2.1) 03/10/17 08:44 Triglycerides 38 mg/dL (0-149) 03/09/17 07:41 Cholesterol 110 mg/dL (0-199) 03/09/17 07:41 LDL Cholesterol Direct 39 mg/dL (0-129) 03/09/17 07:41 HDL Cholesterol 55 mg/dL (30-70) 03/09/17 07:41 Urine Color Straw (YELLOW) 03/08/17 18:20 Urine Clarity Clear (Clear) 03/08/17 18:20 Urine pH 6.0 (5.0-8.0) 03/08/17 18:20 Ur Specific [place] 1.004 (1.003-1.030) 03/08/17 18:20 Urine Protein Negative mg/dL (NEGATIVE) 03/08/17 18:20 Urine Glucose (UA) Normal mg/dL (Normal) 03/08/17 18:20 Urine Ketones Negative mg/dL (NEGATIVE) 03/08/17 18:20 Urine Blood Negative (NEGATIVE) 03/08/17 18:20 Urine Nitrate Negative (NEGATIVE) 03/08/17 18:20 Urine Bilirubin Negative (NEGATIVE) 03/08/17 18:20 Urine Urobilinogen Normal mg/dL (0.2-1.0) 03/08/17 18:20 Ur Leukocyte Esterase Neg Willi/uL (Negative) 03/08/17 18:20 Urine WBC (Auto) 2 /hpf (0-5) 03/08/17 18:20 Ur Squamous Epith Cells < 1 /hpf (0-5) 03/08/17 18:20 Stool Occult Blood Positive (NEGATIVE) H 03/08/17 17:44 Blood Type A POSITIVE 03/08/17 17:42 Blood Type Confirm A POSITIVE 03/08/17 17:42 Antibody Screen Negative 03/08/17 17:42 - Hospital Course Hospital Course: On admission: 89 yo female PMHx HTN, PUD, Alzheimer's dementia, seizure hx? presents after she was sent in by Dr. Card PMD for low Hgb count. As per daughter, on Tuesday the patient mistakenly ingested her blood pressure medications and Plavix meant for 3 days. After she ingested the BP meds she had an episode of "fainting" where she had an episode of brief LOC with some urinary incontinence. Patient did not have any biting of the tongue, eyes rolled back, shaking and she did not hit her head. She woke up and was feeling better and walking around like normal as per daughter. Her BP when she woke up from her episode was 100/50mmHg and a later BP was 117/65mmHg. On Tuesday, patient and daughter noticed some dark tarry stool and some bright red blood streaks in the toilet bowl after a BM. Patient saw Dr. Card in the office on Tuesday and was instructed to no longer take any plavix and was started on Nitrofurantoin 100mg po bid for a possible UTI. Patient had her blood drawn in the office and results this AM showed a Hgb of 7.4 which is why patient was instructed to go to the ER. Denies fever, chills, diaphoresis, weakness, headache, dizziness, lightheadedness, change in vision and change in hearing, sore throat, dysphagia, chest pain, palpitations, SOB, cough, abdominal pain, nausea, vomiting, hematemesis, diarrhea, constipation, dysuria, urinary frequency, leg pain/swelling, back pain , bruising, bleeding, rash, travel, recent sickness, sick contacts, change in weight, change in appetite. Patient admits to melanotic stool and hematochezia. As per son at bedside, patient had a colonoscopy 20 years ago which was unremarkable and an EGD 18 years ago which was unremarkable. Hospital Course: Patient's was transfused one unit of PRBC. Patient tolerated procedure well. Patient's Hgb remained stable. GI (Dr. Howard) was consulted with considerations for EGD when patient deemed stable. Patient's Hgb remained stable through course with initial CBC checks Q12H. EGD findings suggestive of acute prepyloric gastric ulcer without bleeding. Normal ampulla and duodenal bulb bad 2nd part of duodenum noted. Refer to full report. Patient to follow up in the office. In the meantime, patient given instructions as stated below in discharge order. Considerations for platelet functionality were brought up due to patient's overdose on plavix and thus platelet function test was ordered. [facility] ( Dr. Marroquin) also consulted with recommendations. Platelet function tests showed that the plateltes were functioning normally and thus the mechanism of plavix did not disrupt patient's ability to make platelets. Patient's daughter was spoken to extensively regarding holding antiplatelet agents for 1 week and then regarding planning for colonoscopy electively. Again , please refer to discharge order instructions. This is a brief summary of events. For a complete course, refer to the medical record. Discharge Exam - Head Exam Head Exam: ATRAUMATIC, NORMAL INSPECTION, NORMOCEPHALIC - Eye Exam Eye Exam: EOMI, Normal appearance, PERRL Pupil Exam: NORMAL ACCOMODATION - ENT Exam ENT Exam: Mucous Membranes Moist - Neck Exam Neck exam: Full Rom - Respiratory Exam Respiratory Exam: Clear to PA & Lateral, NORMAL BREATHING PATTERN, UNREMARKABLE. absent: Wheezes - Cardiovascular Exam Cardiovascular Exam: +S1, +S2 - GI/Abdominal Exam GI & Abdominal Exam: Normal Bowel Sounds, Soft. absent: Firm - Extremities Exam Extremities exam: full ROM, normal capillary refill, pedal pulses present Additional comments: LE superficial thrombophlebitis b/l nontender - Back Exam Back exam: FULL ROM - Neurological Exam Neurological exam: Alert, CN II-XII Intact - Psychiatric Exam Psychiatric exam: Normal Affect, Normal Mood - Skin Skin Exam: Dry, Intact, Warm Discharge Plan - Discharge Medications Prescriptions: Pantoprazole [Protonix EC Tab] 40 mg PO BID #14 ect - Follow Up Plan Condition: IMPROVED Disposition: HOME/ ROUTINE Instructions: Pantoprazole (By mouth), Peptic Ulcer (DC), Gastritis (DC), Gastrointestinal Bleeding (DC), Heart Healthy Diet (DC) Additional Instructions: Activity as tolerated Referrals: Umang Card MD [Staff Provider] - 1 Week Alessandro Howard MD [Staff Provider] - 1 Week
--- NOTE | 2017-03-10 14:52 | CP.PCM.CON ---
Past Patient History - Past Medical History & Family History Past Medical History?: Yes - Past Social History Smoking Status: Former Smoker Chewing Tobacco Use: No Alcohol: None Drugs: Denies - CARDIAC Hx Hypertension: Yes - PULMONARY Hx Respiratory Disorders: No - NEUROLOGICAL Hx Alzheimer's Disease: Yes Hx Seizures: Yes - HEENT Hx HEENT Problems: Yes Hx Blind: No Hx Cataracts: Yes Hx Deafness: No Hx Difficulty Chewing: No Hx Epistaxis: No Hx Glaucoma: No Hx Macular Degeneration: No Hx Sinusitis: No - RENAL Hx Chronic Kidney Disease: No - ENDOCRINE/METABOLIC Hx Endocrine Disorders: No - HEMATOLOGICAL/ONCOLOGICAL Hx Blood Disorders: No Hx Cirrhosis: No Hx Hepatitis A: No Hx Hepatitis B: No Hx Hepatitis C: No - INTEGUMENTARY Hx Dermatological Problems: No - MUSCULOSKELETAL/RHEUMATOLOGICAL Hx Falls: No - GASTROINTESTINAL Hx Gastrointestinal Disorders: Yes Hx Bowel Surgery: No Hx Clostridium Difficile: No Hx Colitis: No Hx Colostomy: No Hx Constipation: No Hx Crohn's Disease: No Hx Diarrhea: No Hx Diverticulitis: No Hx Esophageal Varices: No Hx Fatty Liver Disease: No Hx Gall Bladder Disease: No Hx Gastritis: No Hx Gastroesophageal Reflux: No Hx Hemorrhoids: No Hx Ileostomy: No Hx Irritable Bowel: No Hx Liver Failure: No Hx Nausea: No Hx Pancreatitis: No HX Swallowing Problems: No Hx Ulcer: Yes (peptic) Hx Vomiting: No - GENITOURINARY/GYNECOLOGICAL Hx Genitourinary Disorders: No - PSYCHIATRIC Hx Substance Use: No - SURGICAL HISTORY Hx Surgeries: Yes Hx Abdominal Aortic Aneurysm Repair: No Hx Amputation: No Hx Angiogram: No Hx Angioplasty: No Hx Appendectomy: No Hx Arteriovenous Shunt: No Hx Arthroscopy: No Hx Bile Duct Stent: No Hx Breast Biopsy: No Hx Cataract Extraction: Yes Hx Cardiac Catheterization: No Hx Carotid Endarterectomy: No Hx Section: No Hx Cholecystectomy: No Hx Coronary Artery Bypass Graft: No Hx Coronary Stent: No Hx Dilation and Curettage: Yes Hx Eye Surgery: No Hx Femoral-Popliteal Bypass Graft: No Hx Gastric Bypass Surgery: No Hx Herniorrhaphy: No Hx Hysterectomy: No Hx Joint Replacement: No Hx Kidney Transplant: No Hx Liver Transplant: No Hx Mastectomy: No Hx Musculoskeletal Surgery: No Hx Open Heart Surgery: No Hx Open Reduction Internal Fixation: No Hx Orthopedic Surgery: No Hx Parathyroidectomy: No Hx Penile Implant: No Hx Pulmonary Surgery: No Hx Splenectomy: No Hx Thyroidectomy: No Hx Tonsillectomy: No Hx Tubal Ligation: No Hx Valve Replacement: No Hx Vascular Surgery: No Hx Vascular Access Device: No - ANESTHESIA Hx Anesthesia: No Hx Anesthesia Reactions: No Hx Malignant Hyperthermia: No Has any member of the family had a problem w/ anesthesia?: No Meds Home Medications: Home Medication List Medication Instructions Recorded Confirmed Type Clopidogrel [Plavix] 75 mg PO DAILY #0 03/10/17 03/08/17 Rx Omeprazole 20 mg PO DAILY #0 03/10/17 03/08/17 Rx Pantoprazole [Protonix EC Tab] 40 mg PO BID #14 ect 03/10/17 Rx Allergies/Adverse Reactions: Allergies Allergy/AdvReac Type Severity Reaction Status Date / Time No Known Allergies Allergy Verified 03/08/17 16:33 - Medications Medications: Current Medications Hydrochlorothiazide (Microzide) 12.5 mg PO DAILY [facility] Sodium Chloride (Sodium Chloride 0.9%) 1,000 mls @ 80 mls/hr IV .[id number] [facility] Last Admin: 03/10/17 01:45 Dose: Not Given Losartan Potassium (Cozaar) 100 mg PO DAILY [facility] Last Admin: 03/10/17 11:46 Dose: 100 mg Pantoprazole Sodium (Protonix Ec Tab) 40 mg PO BID [facility] Last Admin: 03/10/17 11:39 Dose: Not Given Results - Vital Signs Recent Vital Signs: Last Vital Signs Temp 97.3 F L 03/10/17 11:14 Pulse 73 03/10/17 11:14 Resp 20 03/10/17 11:14 BP 154/92 H 03/10/17 11:14 Pulse Ox 97 03/10/17 12:30 - Labs Result Diagrams: 03/10/17 08:44 03/10/17 08:44 Labs: Laboratory Results - last 24 hr 03/09/17 03/10/17 03/10/17 17:52 08:44 08:44 WBC 4.2 L 5.0 RBC 3.31 L 3.26 L Hgb 9.9 L 10.0 L Hct 29.5 L 29.1 L MCV 89.2 89.4 MCH 29.9 30.7 MCHC 33.5 34.3 RDW 14.1 14.3 Plt Count 384 435 H MPV 6.9 L 6.9 L Neut % (Auto) 71.1 71.5 Lymph % (Auto) 19.0 L 18.5 L [place] % (Auto) 7.8 7.0 Eos % (Auto) 1.5 2.4 Baso % (Auto) 0.6 0.6 Neut # 3.0 3.6 Lymph # 0.8 L 0.9 L [place] # 0.3 0.4 Eos # 0.1 0.1 Baso # 0.0 0.0 Plt Function Assay 376 Sodium Potassium Chloride Carbon Dioxide Anion Gap BUN Creatinine Est GFR ( Amer) Est GFR (Non-Af Amer) Random Glucose Calcium Phosphorus Magnesium Total Bilirubin AST ALT Alkaline Phosphatase Total Protein Albumin Globulin Albumin/Globulin Ratio 03/10/17 08:44 WBC RBC Hgb Hct MCV MCH MCHC RDW Plt Count MPV Neut % (Auto) Lymph % (Auto) [place] % (Auto) Eos % (Auto) Baso % (Auto) Neut # Lymph # [place] # Eos # Baso # Plt Function Assay Sodium 131 L Potassium 3.5 L Chloride 95 L Carbon Dioxide 27 Anion Gap 13 BUN 7 Creatinine 0.6 L Est GFR ( Amer) > 60 Est GFR (Non-Af Amer) > 60 Random Glucose 84 Calcium 8.6 Phosphorus 3.4 Magnesium 1.8 Total Bilirubin 0.6 AST 22 ALT 31 Alkaline Phosphatase 91 Total Protein 7.0 Albumin 3.8 Globulin 3.2 Albumin/Globulin Ratio 1.2
== END 2017-03-10 15:30 | disposition home or self-care (01) | DRG 812 ==
LOC: C.ER 16:23 → C.9E 18:31 → C.3T 22:02 → C.6T 03-09 15:02
PROVIDERS: ADMIT Hospitalist; ATTEND Hospitalist
PROC: 30233N1 Transfusion of Nonautologous Red Blood Cells into Peripheral Vein, Percutaneous Approach (ICD-10-PCS; principal; 2017-03-08)
PROC: 0DB68ZX Excision of Stomach, Via Natural or Artificial Opening Endoscopic, Diagnostic (ICD-10-PCS; 2017-03-10)
DX: D62 Acute posthemorrhagic anemia (principal); K92.1 Melena; K25.9 Gastric ulcer, unspecified as acute or chronic, without hemorrhage or perforation; E87.6 Hypokalemia; K29.00 Acute gastritis without bleeding; T45.521A Poisoning by antithrombotic drugs, accidental (unintentional), initial encounter; T39.011A Poisoning by aspirin, accidental (unintentional), initial encounter; K44.9 Diaphragmatic hernia without obstruction or gangrene; I10 Essential (primary) hypertension; G30.9 Alzheimer's disease, unspecified; F02.80 Dementia in other diseases classified elsewhere, unspecified severity, without behavioral disturbance, psychotic disturbance, mood disturbance, and anxiety; R32 Unspecified urinary incontinence; Z79.02 Long term (current) use of antithrombotics/antiplatelets; Z79.899 Other long term (current) drug therapy; Y92.009 Unspecified place in unspecified non-institutional (private) residence as the place of occurrence of the external cause